=== PATIENT | female | born 1985 | race American Indian/Alaskan Native ===

== ENCOUNTER 2017-06-08 20:51 | Emergency (ER) | payer BC ==
[2017-06-08 23:04] LABS: HCG Qualitative,Urine Negative (Negative)
[2017-06-08 23:07] LABS: Amorphous Crystals,Urine 1+; Bilirubin,Urine NEG (Negative); Blood,Urine NEG (Negative); Color,Urine Yellow (Yellow); Nitrite,Urine NEG (Negative); Protein,Urine <15 mg/dL mg/dL (Negative)
--- NOTE | 2017-06-09 08:21 | Emergency Department Report ---
- General Chief Complaint: Pain General Stated Complaint: BODYACHES; N/V; H/A Time Seen by Provider: 06/09/17 07:55 Source: patient Mode of arrival: Ambulatory Limitations: No Limitations - History of Present Illness Initial Comments: 32-year-old female past medical history smoker presents with 4-5 days sore throat and body aches rhinorrhea intermittent headaches. States she has dry nonproductive cough. Patient states she has had multiple coworkers who have had flulike symptoms over the last week. Patient is awake alert and oriented 3 not in acute distress no audible wheezing or stridor. Fully lucid and nontoxic appearing. MD Complaint: cough, sore throat, rhinorrhea, nasal congestion Onset/Timin -: days(s) Severity: moderate Improves With: nothing Worsens With: nothing Context: sick contacts Associated Symptoms: fever, chills, rhinorrhea, cough Treatments Prior to Arrival: none - Related Data Previous Rx's Medication Instructions Recorded Last Taken Type Albuterol Sulfate [Ventolin Hfa] 1 gm IH Q4H PRN #1 hfa.aer.ad 06/09/17 Unknown Rx Azithromycin [Zithromax Z-PETER] 250 mg PO QDAY #1 pack 06/09/17 Unknown Rx Dextromethorphan/Benzocaine 1 each PO Q4H PRN #1 box 06/09/17 Unknown Rx [Cepacol Sorethroat-Cough Nataliia] Naproxen 250 mg PO BID PRN #20 tablet 06/09/17 Unknown Rx Phenylephrine/Dm/Acetaminop/GG 10 ml PO Q6H PRN #1 liquid 06/09/17 Unknown Rx [Mucinex Vsdk-Deq-Zbvguqwwwc Lq] Allergies Allergy/AdvReac Type Severity Reaction Status Date / Time No Known Allergies Allergy Unverified 06/08/17 21:22 ED Review of Systems ROS: Stated complaint: BODYACHES; N/V; H/A Other details as noted in HPI Constitutional: denies: chills, fever Eyes: denies: eye pain, eye discharge, vision change ENT: denies: ear pain, throat pain Respiratory: cough. denies: shortness of breath, wheezing Cardiovascular: denies: chest pain, palpitations Endocrine: no symptoms reported Gastrointestinal: denies: abdominal pain, nausea, diarrhea Genitourinary: denies: urgency, dysuria, discharge Musculoskeletal: denies: back pain, joint swelling, arthralgia Skin: denies: rash, lesions Neurological: denies: headache, weakness, paresthesias Psychiatric: denies: anxiety, depression Hematological/Lymphatic: denies: easy bleeding, easy bruising ED Past Medical Hx - Past Medical History Previous Medical History?: No - Surgical History Past Surgical History?: No - Social History Smoking Status: Current Every Day Smoker Substance Use Type: None - Medications Home Medications: Home Medications Medication Instructions Recorded Confirmed Last Taken Type Albuterol Sulfate [Ventolin Hfa] 1 gm IH Q4H PRN #1 hfa.aer.ad 06/09/17 Unknown Rx Azithromycin [Zithromax Z-PETER] 250 mg PO QDAY #1 pack 06/09/17 Unknown Rx Dextromethorphan/Benzocaine 1 each PO Q4H PRN #1 box 06/09/17 Unknown Rx [Cepacol Sorethroat-Cough Nataliia] Naproxen 250 mg PO BID PRN #20 tablet 06/09/17 Unknown Rx Phenylephrine/Dm/Acetaminop/GG 10 ml PO Q6H PRN #1 liquid 06/09/17 Unknown Rx [Mucinex Rmjs-Oek-Lzkswyoytv Lq] ED Physical Exam - General Limitations: No Limitations General appearance: alert, in no apparent distress - Head Head exam: Present: atraumatic, normocephalic - Eye Eye exam: Present: normal appearance, PERRL, EOMI - ENT ENT exam: Present: mucous membranes moist - Neck Neck exam: Present: normal inspection - Respiratory Respiratory exam: Present: normal lung sounds bilaterally. Absent: respiratory distress - Cardiovascular Cardiovascular Exam: Present: regular rate, normal rhythm. Absent: systolic murmur, diastolic murmur, rubs, gallop - GI/Abdominal GI/Abdominal exam: Present: soft, normal bowel sounds - Extremities Exam Extremities exam: Present: normal inspection - Back Exam Back exam: Present: normal inspection - Neurological Exam Neurological exam: Present: alert, oriented X3 - Psychiatric Psychiatric exam: Present: normal affect, normal mood - Skin Skin exam: Present: warm, dry, intact, normal color. Absent: rash ED Course Vital Signs 06/08/17 06/09/17 21:22 05:47 Temperature 98.5 F 98.4 F Pulse Rate 76 63 Respiratory 18 14 Rate Blood Pressure 105/78 110/76 O2 Sat by Pulse 100 100 Oximetry ED Medical Decision Making - Medical Decision Making A/P: Acute bronchitis, viral syndrome, reactive airway 1-influenza swab negative, symptoms started over 72 hours ago approximately 4-5 days ago 2-vital signs stable 3-Mucinex, naproxen, throat lozenges 4-as patient has heavy smoker will cover her empirically with azithromycin Critical care attestation.: If time is entered above; I have spent that time in minutes in the direct care of this critically ill patient, excluding procedure time. ED Disposition Clinical Impression: Viral syndrome Disposition: DC- TO HOME OR SELFCARE Is pt being admited?: No Does the pt Need Aspirin: No Condition: Stable Instructions: Upper Respiratory Infection (ED), Acute Bronchitis (ED) Prescriptions: Albuterol Sulfate [Ventolin Hfa] 1 gm IH Q4H PRN #1 hfa.aer.ad PRN Reason: Cough Azithromycin [Zithromax Z-PETER] 250 mg PO QDAY #1 pack Dextromethorphan/Benzocaine [Cepacol Sorethroat-Cough Nataliia] 1 each PO Q4H PRN #1 box PRN Reason: Sore Throat Naproxen 250 mg PO BID PRN #20 tablet PRN Reason: Pain Phenylephrine/Dm/Acetaminop/GG [Mucinex Hjxi-Vxm-Axlekgbgor Lq] 10 ml PO Q6H PRN #1 liquid PRN Reason: Cough Referrals: [facility] [place] [Outside] - 3-5 Days [facility] [Outside] - 3-5 Days Forms: Work/School Release Form(ED) Time of Disposition: 08:55
[2017-06-09] MEDS ORDERED: TYLENOL PO ONE (08:22)
[2017-06-09] MEDS ORDERED: ZOFRAN ODT PO ONE (08:22)
[2017-06-09 09:10] VITALS: BP 133/78
== END 2017-06-09 09:15 | disposition home or self-care (01) ==
LOC: ED 20:51
DX: B34.9 Viral infection, unspecified (principal); F17.200 Nicotine dependence, unspecified, uncomplicated
CPT/HCPCS: 81001; 81025; 87400; 99283; Q0162

== ENCOUNTER 2021-07-01 13:12 | Emergency (ER) | payer SELFPAY ==
[2021-07-01] MEDS ORDERED: ASPIRIN 325 MG TAB PO ONE (14:30)
--- NOTE | 2021-07-01 14:30 | Emergency Department Report ---
ED Chest Pain HPI - General Chief Complaint: Chest Pain Stated Complaint: CHEST PAIN/RT ARM TINGLING Time Seen by Provider: 07/01/21 14:19 Source: patient Mode of arrival: Ambulatory Limitations: No Limitations - History of Present Illness Initial Comments: 36-year-old female presents to the ER today with complaints of substernal chest discomfort. Patient states that she has been having this pain pain intermittently for couple weeks. She describes the pain as a tight but also pinching pain. She states that the pain is worse when she is sitting and relaxing, but seems to be better when she is moving around. She states that today she had some tingling in her fingers and some wrist pain with it. She denies any shortness of breath, cough, nausea vomiting, abdominal pain, calf pain or swelling or any additional symptoms. She states that she smokes tobacco and marijuana but she stopped smoking back in April after she was diagnosed with COVID-19. She denies any significant past medical history. She states that her dad did have an AL in his 40s. She is not currently on any control. She denies any significant past medical history. She has no risk factors for PE. MD Complaint: chest pain -: week(s) (2) Severity scale (0 -10): 1 - Related Data Previous Rx's Medication Instructions Recorded Last Taken Type Albuterol Sulfate [Ventolin Hfa] 1 gm IH Q4H PRN #1 hfa.aer.ad 06/09/17 Unknown Rx Azithromycin [Zithromax Z-PETER] 250 mg PO QDAY #1 pack 06/09/17 Unknown Rx Dextromethorphan/Benzocaine 1 each PO Q4H PRN #1 box 06/09/17 Unknown Rx [Cepacol Sorethroat-Cough Nataliia] Naproxen 250 mg PO BID PRN #20 tablet 06/09/17 Unknown Rx Phenylephrine/Dm/Acetaminop/GG 10 ml PO Q6H PRN #1 liquid 06/09/17 Unknown Rx [Mucinex Jttl-Hxg-Hcgknqjusd Lq] Allergies Allergy/AdvReac Type Severity Reaction Status Date / Time No Known Allergies Allergy Unverified 06/08/17 21:22 Heart Score - HEART Score History: Slightly suspicious EKG: Normal Age: < 45 Risk factors: 1-2 risk factors Troponin: < normal limit HEART Score: 1 - EKG Read Time Time EKG Completed: 14:29 EKG Read Time: 14:34 - Critical Actions Critical Actions: 0-3 pts:0.9-1.7%risk of adverse cardiac event.Candidate for discharge ED Review of Systems ROS: Stated complaint: CHEST PAIN/RT ARM TINGLING Other details as noted in HPI ED Past Medical Hx - Social History Smoking Status: Current Every Day Smoker Substance Use Type: None - Medications Home Medications: Home Medications Medication Instructions Recorded Confirmed Last Taken Type Albuterol Sulfate [Ventolin Hfa] 1 gm IH Q4H PRN #1 hfa.aer.ad 06/09/17 Unknown Rx Azithromycin [Zithromax Z-PETER] 250 mg PO QDAY #1 pack 06/09/17 Unknown Rx Dextromethorphan/Benzocaine 1 each PO Q4H PRN #1 box 06/09/17 Unknown Rx [Cepacol Sorethroat-Cough Nataliia] Naproxen 250 mg PO BID PRN #20 tablet 06/09/17 Unknown Rx Phenylephrine/Dm/Acetaminop/GG 10 ml PO Q6H PRN #1 liquid 06/09/17 Unknown Rx [Mucinex Ovud-Exh-Fbicmgbovg Lq] ED Physical Exam - General Limitations: No Limitations ED Course Vital Signs 07/01/21 14:02 Temperature 98.7 F Pulse Rate 67 Respiratory 18 Rate Blood Pressure 123/75 [Right] O2 Sat by Pulse 100 Oximetry ED Medical Decision Making - Lab Data Result diagrams: 07/01/21 14:40 07/01/21 14:40 - EKG Data EKG shows normal: sinus rhythm Rate: normal No standard instances Voltage: decreased voltage P Waves: LAE - Radiology Data Radiology results: report reviewed Patient: ELGIN JOLLY MR#: [id number] : 1985 Acct:[id number] Age/Sex: 36 / F ADM Date: 07/01/21 Loc: ED Attending Dr: Ordering Physician: MATILDA CAROLINA Date of Service: 07/01/21 Procedure(s): XR chest routine 2V Accession Number(s): [id number] cc: MATILDA CAROLINA Fluoro Time In Minutes: CHEST 2 VIEWS INDICATION / CLINICAL INFORMATION: Chest Pain. COMPARISON: None available. FINDINGS: SUPPORT DEVICES: None. HEART / MEDIASTINUM: No significant abnormality. LUNGS / PLEURA: No significant pulmonary or pleural abnormality. No pneumothorax. ADDITIONAL FINDINGS: No significant additional findings. IMPRESSION: 1. No acute findings. Signer Name: Walt Rosales MD Signed: 07/01/2021 4:00 PM Workstation Name: [id number] Transcribed By: IRAIDA Dictated By: Walt Rosales MD Electronically Authenticated By: Walt Rosales MD Signed Date/Time: 07/01/21 1600 DD/ 1559 TD/TT: - Medical Decision Making All labs reviewed and shows no acute abnormalities including normal troponin. EKG does not show STEMI or significant acute ischemic changes or dysrhythmias. Chest x-ray is normal. Patient has a heart score of 1. PERC score of 0. sHE IS currently sitting comfortably in the recliner talking to the patient. She is not in any significant distress. She is not toxic or ill-appearing. Gait is normal. Vital signs are stable. Do not suspect unstable angina, aortic dissection, PE, or any other emergent conditions warranting additional testing, emergent cardiology consult, or admission at this time. Symptoms could be related to anxiety but recommend that she follows up with her primary care do ctor who can refer to cardiology for further evaluation. Patient expressed understanding of all instructions and agree plan. Patient was stable at time of discharge. - Differential Diagnosis STEMI, unstable angina, PE, pneumonia, anxiety, chest wall pain, GERD Critical care attestation.: If time is entered above; I have spent that time in minutes in the direct care of this critically ill patient, excluding procedure time. ED Disposition Clinical Impression: Nonspecific chest pain Disposition: HOME / SELF CARE / HOMELESS Is pt being admited?: No Does the pt Need Aspirin: No Condition: Stable Instructions: Nonspecific Chest Pain, Adult Additional Instructions: I recommend that you follow-up with your primary care doctor for further evaluat ion especially if your symptoms persist. She can give a referral to cardiology for outpatient stress test and echocardiogram. You can take Tylenol and/or ibuprofen as needed for pain. Return to the ER if your symptoms changes or worsens in any way. Referrals: DARRICK HIDALGO MD [Staff Physician] - 3-5 Days Forms: Work/School Release Form(ED) Time of Disposition: 16:14
[2021-07-01 14:54] LABS: Basophils % (Auto) 0.7 % (0.0-1.8); Eosinophils # (Auto) 0.3 K/mm3 (0.0-0.4); Eosinophils % (Auto) 4.7 % (0.0-4.3); Hematocrit 40.9 % (30.3-42.9); Hemoglobin 13.1 gm/dl (10.1-14.3); Lymphocytes # (Auto) 1.8 K/mm3 (1.2-5.4); Lymphocytes % (Auto) 27.7 % (13.4-35.0); Mean Corpuscular HGB Conc 32 % (30-34); Mean Corpuscular Volume 86 fl (79-97); Monocytes # (Auto) 0.5 K/mm3 (0.0-0.8); Platelet Count 335 K/mm3 (140-440); Red Blood Count 4.78 M/mm3 (3.65-5.03); Red Cell Distribution Width 14.8 % (13.2-15.2)
[2021-07-01 15:15] LABS: Alanine Aminotransferase 13 units/L (7-56); Albumin 3.9 g/dL (3.9-5); Blood Urea Nitrogen 10 mg/dL (7-17); Calcium 8.5 mg/dL (8.4-10.2); Hemolysis Index 26
[2021-07-01 15:18] LABS: BUN/Creatinine Ratio 17
--- NOTE | 2021-07-01 16:04 | XRay Report ---
CHEST 2 VIEWS INDICATION / CLINICAL INFORMATION: Chest Pain. COMPARISON: None available. FINDINGS: SUPPORT DEVICES: None. HEART / MEDIASTINUM: No significant abnormality. LUNGS / PLEURA: No significant pulmonary or pleural abnormality. No pneumothorax. ADDITIONAL FINDINGS: No significant additional findings. IMPRESSION: 1. No acute findings. Signer Name: Walt Rosales MD Signed: 07/01/2021 4:00 PM Workstation Name: [id number]
[2021-07-01 16:39] VITALS: BP 117/74
--- NOTE | 2021-07-03 13:08 | Electrocardiograph Report ---
[facility] Test Date: 2021-07-01 Test Time: 14:29:53 Pat Name: ELGIN JOLLY Department: Room: Gender: F [employer] Work[employer]: REBECCA : 1985 Requested By: ASHANTI MOONEY Order Number: [id number] Reading MD: Brandan Bower Measurements Intervals [place] Rate: 75 P: 70 DC: 147 QRS: -25 QRSD: 88 T: 19 QT: 374 QTc: 417 Interpretive Statements Sinus rhythm Probable left atrial enlargement Low voltage, precordial leads No previous ECG available for comparison Electronically Signed On 07-03-2021 13:07:55 EST by Brandan Bower
== END 2021-07-01 16:20 | disposition home or self-care (01) ==
LOC: ED 13:12
DX: R07.9 Chest pain, unspecified (principal)
CPT/HCPCS: 36415; 71046; 80053; 83690; 84484; 84703; 85025; 93005; 93010; 99283; 99284